=== PATIENT | female | born 1945 | race Caucasian/White ===

== ENCOUNTER 2019-01-11 07:00 | Inpatient (IN) ==
--- NOTE | 2019-01-04 09:22 | EKG Report ---
Test Performed on : 01/04/2019 09:18:01 AM Test Reason : PAT Blood Pressure : / mmHG Vent. Rate : 066 BPM Atrial Rate : 066 BPM P-R Int : 188 ms QRS Dur : 074 ms QT Int : 434 ms P-R-T Axes : 026 -19 021 degrees QTc Int : 454 ms Normal sinus rhythm. Normal ECG No previous ECGs available Unconfirmed Result
[2019-01-04 09:30] LABS: URINE SOURCE CLEAN CATCH
[2019-01-04 09:41] LABS: BASO# 0.02 X1000 (0.0-0.2); BASO% 0.3 % (0.0-0.8); EOS# 0.09 X1000 (0.0-0.7); EOS% 1.6 % (0.0-10.0); HEMATOCRIT 43.1 % (37.0-47.0); HEMOGLOBIN 14.3 g/dL (12.0-16.0); LYMPH# 1.63 X1000 (1.2-3.4); LYMPH% 28.4 % (20.5-51.1); MCH 32.4 PG (27-31); MCHC 33.2 g/dL (33-37); MCV 97.7 FL (81-99); MONO# 0.84 X1000 (0.11-0.59); MONO% 14.7 % (1.7-9.3); MPV 10.2 FL (7.4-10.4); NEUT# 3.15 X1000 (1.4-6.5); PLT 280 X1000 (130-400); RBC 4.41 XMIL (4.2-5.4); RDW 12.6 % (11.5-14.5); WBC 5.73 X1000 (4.8-10.8)
[2019-01-04 09:46] LABS: BILIRUBIN URINE NEGATIVE (NEGATIVE); BLOOD URINE NEGATIVE (NEGATIVE); COLOR YELLOW; GLUCOSE URINE NEGATIVE (NEGATIVE); KETONE URINE NEGATIVE (NEGATIVE); LEUKOCYTES URINE MODERATE (NEGATIVE); NITRITE URINE NEGATIVE (NEGATIVE); PH URINE 6.5; PROTEIN URINE NEGATIVE (NEGATIVE); SP GRAVITY URINE 1.016; TURBIDITY URINE HAZY (CLEAR); UR EPITHELIAL CELLS <10 /HPF (<10); URINE BACTERIA 4+ /HPF; URINE RBC <10 /HPF (<10); UROBILINOGEN URINE NORMAL (NORMAL)
[2019-01-04 09:54] LABS: PROTIME 13.3 Seconds (11.0-16.0)
[2019-01-04 09:55] LABS: PTT 28.2 Seconds (22.3-41.8)
[2019-01-04 09:58] LABS: HEMOGLOBIN A1C 5.1 % (4.8-6.0)
[2019-01-04 10:27] LABS: AGAP 9; BUN 16 mg/dL (8-22); CALCIUM 9.4 mg/dL (8.8-10.2); CHLORIDE 103 mmol/L (98-107); COSMO 280; CREATININE 0.9 mg/dL (0.5-0.9); ESTIMATED GFR > 60; GLUCOSE 82 mg/dL (70-104); POTASSIUM 4.1 mmol/L (3.5-5.1); SODIUM 140 mmol/L (136-145); TCO2 28 mmol/L (25-35)
[2019-01-11] MEDS ORDERED: DIPRIVAN 1% ONE (10:24)
[2019-01-11] MEDS ORDERED: XYLOCAINE-MPF 2% ONE (10:24)
[2019-01-11] MEDS ORDERED: QUELICIN (DOSE) ONE (10:24)
[2019-01-11] MEDS ORDERED: ROBINUL ONE ×2 (10:24→13:52)
[2019-01-11] MEDS ORDERED: PEPCID ONE (10:42)
[2019-01-11] MEDS ORDERED: COLACE ONE (10:42)
[2019-01-11] MEDS ORDERED: REGLAN ONE (10:42)
[2019-01-11] MEDS ORDERED: LR 1,000 ML ONE (10:42)
[2019-01-11] MEDS ORDERED: LYRICA ONE (10:42)
[2019-01-11] MEDS ORDERED: CELEBREX ONE (10:42)
[2019-01-11] MEDS ORDERED: VANCOMYCIN 1 GM/NS 1 GM/250 ML IVPB ONE (11:06)
[2019-01-11] MEDS ORDERED: MARCAINE 0.25% PF ONE (11:51)
[2019-01-11] MEDS ORDERED: TORADOL ONE (11:51)
[2019-01-11] MEDS ORDERED: CYKLOKAPRON 1,000 MG/NS 1,000 MG/100 ML IVPB ONE (11:51)
[2019-01-11] MEDS ORDERED: SODIUM CHLORIDE 0.9% ONE (11:51)
[2019-01-11] MEDS ORDERED: DURAMORPH ONE (11:51)
[2019-01-11] MEDS ORDERED: EXPAREL 1.3% ONE (11:52)
[2019-01-11] MEDS ORDERED: ZEMURON ONE (12:48)
[2019-01-11] MEDS ORDERED: KETAMINE ONE (13:10)
[2019-01-11] MEDS ORDERED: NEOSTIGMINE ONE (13:52)
[2019-01-11 14:04] LABS: URINE SOURCE CATH
[2019-01-11] MEDS ORDERED: EPHEDRINE ONE (14:07)
[2019-01-11 14:09] LABS: BILIRUBIN URINE NEGATIVE (NEGATIVE); BLOOD URINE NEGATIVE (NEGATIVE); COLOR YELLOW; GLUCOSE URINE NEGATIVE (NEGATIVE); KETONE URINE NEGATIVE (NEGATIVE); LEUKOCYTES URINE NEGATIVE (NEGATIVE); NITRITE URINE POSITIVE (NEGATIVE); PROTEIN URINE NEGATIVE (NEGATIVE); TURBIDITY URINE CLEAR (CLEAR); UROBILINOGEN URINE NORMAL (NORMAL)
[2019-01-11 14:10] LABS: UR EPITHELIAL CELLS <10 /HPF (<10); URINE BACTERIA 4+ /HPF; URINE RBC <10 /HPF (<10); URINE WBC <10 /HPF (<10)
[2019-01-11] MEDS: DILAUDID ONE ×2 (14:48→14:55)
[2019-01-11] MEDS ORDERED: NS 1,000 ML ONE (15:03)
--- NOTE | 2019-01-11 15:05 | Diag Imaging Result Doc PS360 ---
EXAM: SHOULDER 1 VIEW LEFT HISTORY: post op TECHNIQUE: Single view COMPARISON: None. FINDINGS: There has been orthopedic replacement of the left shoulder. Joint space narrowing and bone spurring to the acromioclavicular joint. No fracture. IMPRESSION: Acromioclavicular arthritis. Electronically signed by Iker Courtney 01/11/2019 3:02 PM
[2019-01-11] MEDS ORDERED: OXY IR ONE (15:19)
[2019-01-11] MEDS ORDERED: MORPHINE IV PRN ×3 (17:30)
[2019-01-11] MEDS ORDERED: OXY IR PO PRN (17:30)
[2019-01-11] MEDS ORDERED: ZOFRAN IV PRN (17:30)
[2019-01-11] MEDS ORDERED: MILK OF MAGNESIA PO PRN (17:30)
[2019-01-11] MEDS ORDERED: CYKLOKAPRON 1,000 MG in NS 100 ML IV ONE (18:00)
[2019-01-11] MEDS: COLACE PO SCH ×2 (19:08→21:42)
[2019-01-11] MEDS: OXY IR PO PRN (19:09)
[2019-01-11] MEDS: NS 1,000 ML IV SCH (19:13)
[2019-01-11] MEDS: PERIDEX MT SCH (21:44)
[2019-01-11] MEDS: TYLENOL PO SCH (21:44)
[2019-01-12] MEDS ORDERED: VANCOMYCIN 1 GM/NS 1 GM/250 ML IVPB IV ONE (00:30)
[2019-01-12] MEDS: TYLENOL PO SCH ×2 (01:13→08:31)
[2019-01-12] MEDS: NS 1,000 ML IV SCH (01:13)
[2019-01-12 06:25] LABS: HEMATOCRIT 32.2 % (37.0-47.0); HEMOGLOBIN 10.3 g/dL (12.0-16.0)
[2019-01-12 06:54] LABS: AGAP 10; BUN 13 mg/dL (8-22); CALCIUM 8.6 mg/dL (8.8-10.2); CHLORIDE 106 mmol/L (98-107); COSMO 282; CREATININE 0.5 mg/dL (0.5-0.9); ESTIMATED GFR > 60; GLUCOSE 112 mg/dL (70-104); POTASSIUM 4.3 mmol/L (3.5-5.1); SODIUM 141 mmol/L (136-145); TCO2 25 mmol/L (25-35)
[2019-01-12 07:41] VITALS: BP 104/63
--- NOTE | 2019-01-12 07:45 | OPERATIVE NOTE ---
PROCEDURE DATE: 01/11/2019 PREOPERATIVE DIAGNOSIS: Left glenohumeral arthritis. POSTOPERATIVE DIAGNOSIS: Left glenohumeral arthritis. PROCEDURE: Left reverse shoulder arthroplasty with DePuy Delta Xtend size 12 press-fit stem, a 38+ 6 humeral cup, a 38+ 2 mm lateralized eccentric Glenosphere and a standard Metaglene. SURGEON: Dr. Pj Barahona. HOME HEALTH ATTENDANT: HEMAL Solorzano, who was necessary for proper retraction and manipulation of the extremity during the case. SECOND BLOCK AND CASE MAKER: Arslan Kaye RN. ANESTHESIA: General. IV FLUIDS: 1500 mL of lactated Ringer's. ESTIMATED BLOOD LOSS: 100 mL. COMPLICATIONS: None. INDICATION: The patient is a pleasant 73-year-old female with a chronic history of pain and discomfort of the left shoulder. She continued to have pain and discomfort despite appropriate nonoperative treatment. X-rays revealed evidence of glenoid arthritis. A recommendation to proceed with left reverse shoulder arthroplasty was offered. Risks and benefits of surgery were explained, including the risks of anesthesia, , bleeding, infection, failure to relieve pain, postoperative stiffness, nerve injury, blood clots, and other imponderables. All questions were answered. The patient wished to proceed with surgery. DETAILS OF OPERATION: The patient was taken to the operating room and placed supine on the operating table. Once adequate anesthesia was obtained, patient was placed in semi-Roman beach- chair position. The left shoulder was subsequently prepped and draped in usual sterile fashion. A standard deltopectoral incision was made with a skin knife. Medial and lateral skin envelopes were developed. Hemostasis was obtained using electrocautery. The deltopectoral interval was then developed. Retractors were placed deep to the conjoint tendon as well. Attention was then turned to the subscapularis tendon and the stay sutures placed. Approximately 1 cm medial to the insertion this was released. The shoulder was then dislocated anteriorly. Further resection of the posterosuperior aspect of the rotator cuff was performed. The patient had significant arthritic change in the humeral head. Intramedullary guide placed. This was followed by reaming up to a size 12. The intramedullary guide was placed with approximately 15 degrees of retroversion and a proximal humeral cutting block was pinned in position. The humeral head was then resected. Protective disk was then placed. Attention was then turned to the glenoid. Circumferential dissection was performed with a deep knife. A guide was placed in position and a guide pin was then placed. Reaming was then conducted. The central hole was then dilated. The wound was copiously irrigated. A standard Metaglene was then impacted in position and after this had been performed, 1 locking screw was placed and 3 nonlocking screws. Good purchase, appeared to be good fixation. The wound was copiously irrigated. A 38+ 2 lateralized eccentric Glenosphere was placed with the eccentricity placed inferiorly. Attention was then turned to the proximal humerus where an intramedullary guide was placed in position and the proximal humerus was reamed. After this had been performed, the wound was copiously irrigated. A size 12 press-fit stem was impacted in position. Approximately 15 degrees of retroversion. After this had been performed, trial cups were then performed and a 38 +6 humeral cup appeared to be the correct size. The trial cup was removed. The shoulder was reduced, carried through range of motion and had excellent stability and range of motion. Exparel was placed in the deep soft tissue. Copious irrigation performed once again. A #2 FiberWire was used to repair the subscapularis tendon. After this had been performed, the remaining Exparel was placed in the deep soft tissue as well as the subcutaneous tissue. The wound was copiously irrigated once again. A 2-0 Vicryl was then used to repair the subcutaneous tissue followed by a running 2-0 Prolene. Benzoin and Steri- Strips applied. Adaptic, sterile 4 x 4, ABD pad, and tape was applied to the left shoulder followed by a shoulder immobilizer. All counts were correct. The patient tolerated the procedure well, was transferred to the recovery room in stable condition. cc: Pj Barahona MD
[2019-01-12] MEDS: COLACE PO SCH (08:31)
[2019-01-12] MEDS: PERIDEX MT SCH (08:31)
[2019-01-12] MEDS: OXY IR PO PRN (08:34)
[2019-01-12] MEDS ORDERED: ASPIRIN PO SCH (09:00)
--- NOTE | 2019-01-12 13:47 | ORTHOPAEDICS PROGRESS NOTE ---
DATE: 01/12/2019 SUBJECTIVE: Ms. Morel is a 73-year-old female who is status post day 1 of a left reverse total shoulder arthroplasty. She has no complaints at this time. Her daughter is at bedside and plans to be helping her upon discharge. She had very minimal pain last night, and states that she is doing well this morning. Her labs are back this morning, and her hemoglobin and hematocrit today is 10.3 and 32.2. Her creatinine is 0.5. Her vital signs were stable throughout the night last night with her also remaining afebrile. OBJECTIVE: Ms. Morel is sitting in bed with her sling in place. She has tolerated her regular diet without any difficulty. She is able to grab my hand with no decrease in strength. Her sensation is intact distally. Her dressing is in place to her surgical incision, and is clean, dry, and intact. She does have some bruising that is expected to her left upper arm. ASSESSMENT: Status post day 1 of a left reverse total shoulder arthroplasty. PLAN: Ms. Morel will be doing 2 weeks of home health rehab due to her daughter going back to [place] where she lives on Wednesday of this week. She will be discharged home with Percocet to take as needed for pain. We will continue all of her home medications. She will be seen back in the office on 01/23 for her follow-up, and her sutures discontinued at that time. Dictated by HEMAL Solorzano for Pj Barahona MD cc: Pj Barahona MD [email or web address]
== END 2019-01-12 11:36 | disposition home health service (06) | DRG 483 ==
LOC: SURHOLD 09:43 → 4N 13:58
PROVIDERS: ADMIT Orthopaedic Surgery Adult Reconstructive Orthopaedic Surgery; ATTEND Orthopaedic Surgery Adult Reconstructive Orthopaedic Surgery